=== PATIENT | female | born 1980 | race American Indian/Alaskan Native ===

== ENCOUNTER 2017-03-25 16:11 | Emergency (ER) | payer MEDICAID ==
[2017-03-25] MEDS ORDERED: ZESTRIL PO ONE (17:09)
--- NOTE | 2017-03-25 17:14 | Emergency Department Report ---
ED General Adult HPI - General Chief complaint: High BP Stated complaint: HBP/SWOLLEN ANKLES Time Seen by Provider: 03/25/17 16:56 Source: patient, EMS Mode of arrival: Ambulatory Limitations: No Limitations - History of Present Illness Initial comments: 36-year-old female here for 1 week with elevated blood pressure. Patient has a known history of hypertension and had a elevation in her blood pressure during her . She was also treated with antihypertensives prior to . She was delivered at 36 weeks due to preeclampsia according to the patient. Today she presents with slight headache which she says she has on occasion. No blurry vision. Some question of slight swelling in her legs bilaterally. She is currently taking labetalol 400 mg twice a day and she is prescribed nifedipine which she is not taking. -: Gradual Location: head Radiation: non-radiation Improves with: none Worsens with: none Associated Symptoms: headaches. denies: confusion, chest pain, diaphoresis, malaise, nausea/vomiting Treatments Prior to Arrival: none - Related Data Home Medications Medication Instructions Recorded Confirmed Last Taken Labetalol [Normodyne] 200 mg PO BID 03/25/17 03/25/17 1 Day Ago NIFEdipine [Nifedipine ER] 60 mg PO QDAY 03/25/17 03/25/17 3 Days Ago Previous Rx's Medication Instructions Recorded Last Taken Type Lisinopril [Zestril TAB] 10 mg PO QDAY #30 tablet 03/25/17 Unknown Rx Allergies Allergy/AdvReac Type Severity Reaction Status Date / Time latex Allergy Rash Verified 03/25/17 16:44 Penicillins Allergy Anaphylaxis Verified 03/25/17 16:44 ED Review of Systems ROS: Stated complaint: HBP/SWOLLEN ANKLES Other details as noted in HPI Comment: All other systems reviewed and negative Constitutional: denies: chills, fever Eyes: denies: eye pain, eye discharge, vision change ENT: denies: ear pain, throat pain Respiratory: denies: cough, shortness of breath, SOB with exertion, wheezing Cardiovascular: edema. denies: chest pain, palpitations, dyspnea on exertion Endocrine: no symptoms reported Gastrointestinal: denies: abdominal pain, nausea, diarrhea Genitourinary: denies: urgency, dysuria, discharge Musculoskeletal: denies: back pain, joint swelling, arthralgia Skin: denies: rash, lesions Neurological: denies: headache, weakness, paresthesias Psychiatric: denies: anxiety, depression Hematological/Lymphatic: denies: easy bleeding, easy bruising ED Past Medical Hx - Past Medical History Previous Medical History?: Yes Hx Hypertension: Yes - Surgical History Past Surgical History?: Yes Additional Surgical History: Pt states she had and tubuligation on - Social History Smoking Status: Unknown if ever smoked - Medications Home Medications: Home Medications Medication Instructions Recorded Confirmed Last Taken Type Labetalol [Normodyne] 200 mg PO BID 03/25/17 03/25/17 1 Day Ago History Lisinopril [Zestril TAB] 10 mg PO QDAY #30 tablet 03/25/17 Unknown Rx NIFEdipine [Nifedipine ER] 60 mg PO QDAY 03/25/17 03/25/17 3 Days Ago History ED Physical Exam - General Limitations: No Limitations General appearance: alert, in no apparent distress - Head Head exam: Present: atraumatic, normocephalic - Eye Eye exam: Present: normal appearance, PERRL, EOMI. Absent: scleral icterus, conjunctival injection - ENT ENT exam: Present: mucous membranes moist - Neck Neck exam: Present: normal inspection - Respiratory Respiratory exam: Present: normal lung sounds bilaterally. Absent: respiratory distress, wheezes, rales - Cardiovascular Cardiovascular Exam: Present: regular rate, normal rhythm. Absent: systolic murmur, diastolic murmur, rubs, gallop - GI/Abdominal GI/Abdominal exam: Present: soft, normal bowel sounds. Absent: distended, tenderness - Extremities Exam Extremities exam: Present: normal inspection, pedal edema (1+). Absent: full ROM, normal capillary refill, joint swelling - Back Exam Back exam: Present: normal inspection - Neurological Exam Neurological exam: Present: alert, oriented X3 - Psychiatric Psychiatric exam: Present: normal affect, normal mood - Skin Skin exam: Present: warm, dry, intact, normal color. Absent: rash ED Course Vital Signs 03/25/17 03/25/17 03/25/17 16:24 18:06 20:15 Temperature 98.7 F 98 F Pulse Rate 83 71 Respiratory 18 17 Rate Blood Pressure 170/109 175/91 161/98 O2 Sat by Pulse 98 99 Oximetry 03/25/17 03/25/17 20:51 21:02 Temperature Pulse Rate Respiratory Rate Blood Pressure 155/93 139/86 O2 Sat by Pulse Oximetry ED Medical Decision Making - Lab Data Result diagrams: 03/25/17 17:24 03/25/17 17:24 - Medical Decision Making There is a female with a known history of preeclampsia here with complaint of slight headache elevation in blood pressure and slight pedal edema. No visual changes. She has a known history of hypertension and was on antihypertensive prior to her . My suspicion is this is most likely generalized hypertension. She has normal neurological exam. I will initiate a new blood pressure medication given that she is not taking her nifedipine. Plan to discuss the case with her eyeglass cutter Dr. Nivia Wyman. Will check UA and other labs. Spoke with Dr. Victoriano Wyman at [facility]. He recommends treating the patient' s blood pressure here in the emergency department. Based on the fact that her LFTs are normal and she has minimal protein. It is highly unlikely that she has continued preeclampsia at this point. The patient has not been compliant with her blood pressure medicines and she has chronic hypertension. Plan to treat the patient with an oral dose of lisinopril. On reassessment blood pressure improved to the 130s over 80s. Discussed with patient plan to discharge home. Patient is to follow up with her OB tomorrow. Portions of this chart were dictated with dictation software. There may be dictation errors contained within this note. Critical care attestation.: If time is entered above; I have spent that time in minutes in the direct care of this critically ill patient, excluding procedure time. ED Disposition Clinical Impression: Hypertension Disposition: DC-01 TO HOME OR SELFCARE Is pt being admited?: No Condition: Stable Instructions: Hypertension (ED) Additional Instructions: Please follow-up with your eyeglass cutter tomorrow. Prescriptions: Lisinopril [Zestril TAB] 10 mg PO QDAY #30 tablet Referrals: PRIMARY CARE, [Primary Care Provider] - 3-5 Days
[2017-03-25 17:37] LABS: Bilirubin,Urine NEG (Negative); Blood,Urine NEG (Negative); Ketones,Urine TR mg/dL (Negative); Leukocyte Esterase,Urine NEG (Negative); Mucus,Urine 2+ /HPF; Nitrite,Urine NEG (Negative); Urobilinogen,Urine < 2.0 mg/dL (<2.0)
[2017-03-25 17:55] LABS: Basophils % (Auto) 1.2 % (0.0-1.8); Eosinophils % (Auto) 4.8 % (0.0-4.3); Hematocrit 37.1 % (30.3-42.9); Hemoglobin 12.1 gm/dl (10.1-14.3); Mean Corpuscular HGB Conc 33 % (30-34); Mean Corpuscular Hemoglobin 28 pg (28-32); Mean Corpuscular Volume 85 fl (79-97); Platelet Count 363 K/mm3 (140-440); Red Blood Count 4.37 M/mm3 (3.65-5.03); Red Cell Distribution Width 16.7 % (13.2-15.2); White Blood Count 5.5 K/mm3 (4.5-11.0)
[2017-03-25 17:56] LABS: Alanine Aminotransferase 24 units/L (7-56); Albumin 3.8 g/dL (3.9-5); Albumin/Globulin Ratio 1.2 %; Alkaline Phosphatase 81 units/L (35-129); Anion Gap 14 mmol/L; BUN/Creatinine Ratio 11.42; Blood Urea Nitrogen 8 mg/dL (7-17); Calcium 8.8 mg/dL (8.4-10.2); Carbon Dioxide 27 mmol/L (22-30); Chloride 104.5 mmol/L (98-107); Glucose 91 mg/dL (65-100); Potassium 3.8 mmol/L (3.6-5.0); Sodium 142 mmol/L (137-145); Total Protein 7.1 g/dL (6.3-8.2)
[2017-03-25] MEDS ORDERED: MAGNESIUM SULFATE 2GM/50ML 2 GM/50 ML BAG IV ONE (18:36)
[2017-03-25 18:55] LABS: Creatine Kinase MB 1.7 ng/mL (0.0-4.0)
[2017-03-25] MEDS ORDERED: NORMODYNE PO ONE (19:09)
[2017-03-25 21:02] VITALS: BP 139/86
== END 2017-03-25 21:37 | disposition home or self-care (01) ==
LOC: ED 16:11
DX: O16.5 Unspecified maternal hypertension, complicating the puerperium (principal)
CPT/HCPCS: 36415; 80053; 81001; 82550; 82553; 85025; 93005; 93010; 99284; J3475

== ENCOUNTER 2017-12-29 14:39 | Outpatient (CLI) | payer MEDICAID ==
--- NOTE | 2017-12-29 20:58 | XRay Report ---
FINAL REPORT EXAM: XR SPINE LUMBOSACRAL 4+V HISTORY: LOW BACK PAIN Ly hip/IS pain TECHNIQUE: AP, lateral, bilateral oblique and coned-down views of lumbar spine. PRIORS: None. FINDINGS: Apparent transitional lumbosacral anatomy, including partial sacralization of L5 level. Possible chronic pars defects or spondylolysis in the L5-S1 level. Mild disc space narrowing in the L4-5 level. Remainder of lumbar disc spaces maintained. No loss of height or gross malalignment of lumbar vertebral bodies. No obvious osseous destruction. Paraspinal soft tissues grossly unremarkable. Lobular, calcific density noted in lower pelvis, with somewhat teeth-like appearance may be related to ovarian dermoid or teratoma versus partially calcified fibroid, but nonspecific. Tubal ligatures noted in the bilateral adnexa. IMPRESSION: 1. No acute osseous abnormality. 2. Degenerative changes. 3. Please see above for additional findings.
== END 2017-12-29 14:40 | disposition home or self-care (01) ==
LOC: XRAY 14:39
DX: M47.897 Other spondylosis, lumbosacral region (principal)
CPT/HCPCS: 72110